=== PATIENT | female | born 1980 | race Caucasian/White ===

== ENCOUNTER 2023-03-04 14:25 | Outpatient (CLI) | payer OTHER ==
--- NOTE | 2023-03-04 16:41 | Ultrasound Report ---
PROCEDURE: Transvaginal INDICATIONS: POLYCYSTIC OVARIAN SYNDROME TECHNIQUE: Transvaginal ultrasound of the pelvis was obtained. COMPARISON: None. FINDINGS: Uterine size: Uterus measures 7.9 x 3.9 x 4.8 cm, and is anteverted. Myometrium: The myometrium is homogeneous. Endometrium: The endometrium measures 8.9 mm in combined thickness. Right ovary: The right ovary measures 1.8 x 3.0 x 2.1 cm. Calculated ovarian volume 6.3 cc. Less t cook 12 ovarian follicles noted Left ovary: The left ovary measures 5.3 x 4.6 x 4.7 cm. Calculated ovarian volume 60.8 cc. Less josé n 12 ovarian follicles noted to. There is a simple left ovarian cyst measuring 3.8 x 3.9 x 3.8 cm Other: No pathologic free abdominal or pelvic fluid. IMPRESSION: Simple left ovarian cyst, 2.9 cm. No evidence of polycystic ovarian syndrome by ultrasound Reviewed by: Jeffrey Brady MD on 03/04/2023 3:40 PM [place] Approved by: Jeffrey Brady MD on 03/04/2023 3:40 PM [place] Station ID: [id number]
== END 2023-03-04 14:26 | disposition home or self-care (01) ==
LOC: DI 14:25
PROVIDERS: ATTEND Nurse Practitioner Family
DX: N83.292 Other ovarian cyst, left side (principal)